=== PATIENT | male | born 1955 | race Caucasian/White ===

== ENCOUNTER 2016-06-05 13:14 | Emergency (ER) | payer OTHER ==
[2016-06-05] MEDS ORDERED: HYDROmorphONE/DILAUDID 1 MG/ML SYR IVP ONE (13:42)
[2016-06-05] MEDS ORDERED: NS 1,000 ML IV ONE (13:42)
--- NOTE | 2016-06-05 13:47 | EDPHY ---
H & P <Berto Vasques - Last Filed: 06/05/16 20:11> Stated Complaint: HTN, difficulty speaking Source: Patient Exam Limitations: No limitations - Personal History Current Tetanus Diphtheria and Acellular Pertussis (TDAP): Yes - Medical/Surgical History Hx Asthma: No Hx Chronic Respiratory Disease: No Hx Diabetes: No Hx Cardiac Disease: Yes Hx Renal Disease: Yes Hx Cirrhosis: No Hx Alcoholism: No Hx HIV/AIDS: No Hx Splenectomy or Spleen Trauma: No Other PMH: PSH: open heart for aortic anerysm w/ bicuspid valve replacement; renal aneurysm repair; hernia repair; fem/pop bypass x2; trasel tunnel nerve release w/ 5 sx after; compartment syndrom L calf w/ fasciotomy, vertibral dissection. 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 He has a history of bilateral fem-pop bypass, AAA with Dacron repair, mechanical aortic valve, cervical vertebral artery dissection and 2 weeks ago had a angioplasty done to his left femoral artery successfully. He comes to the emergency department today complaining of a headache for the last 2 days and elevated blood pressure around 180 systolic. He states that he is supposed to take amlodipine when his blood pressure elevates because they are concerned for aneurysmal damage. He has had angiograms of his brain before and no aneurysms found. He does take Coumadin. He has had a headache associated with his high blood pressure for the last 2 days and today became concerned when he was trying to leave a voicemail at 11: 30 a.m. and had trouble with word finding. He denies slurred speech or any focal weakness or numbness. He is ambulatory. He laid down on the couch and took a dose of amlodipine. His word-finding difficulties have now resolved. he denies chest pain, shortness of breath or palpitations. REVIEW OF SYSTEMS: Constitutional: denies: chills, fever, recent illness, recent injury EENTM: denies: blurred vision, double vision, nose congestion Respiratory: denies: cough, shortness of breath Cardiac: denies: chest pain, irregular heart rate, lightheadedness, palpitations Gastrointestinal/Abdominal: denies: abdominal pain, diarrhea, nausea, vomiting, blood streaked stools Genitourinary: denies: dysuria, frequency, hematuria, pain Musculoskeletal: denies: joint pain, muscle pain Skin: denies: lesions, rash, jaundice, bruising Neurological: See HPI Hematologic/Lymphatic: denies: blood clots, easy bleeding, easy bruising Immunologic/allergic: denies: HIV/AIDS, transplant EXAM: GENERAL: Well-appearing, well-nourished and in no acute distress. HEAD: Atraumatic, normocephalic. EYES: Pupils equal round and reactive to light, extraocular movements intact, sclera anicteric, conjunctiva are normal. ENT: TMs normal, nares patent, oropharynx clear without exudates. Moist mucous membranes. NECK: Normal range of motion, supple without lymphadenopathy or JVD. LUNGS: Breath sounds clear to auscultation bilaterally and equal. No wheezes rales or rhonchi. HEART: Regular rate and rhythm without murmurs, rubs or gallops. ABDOMEN: Soft, nontender, normoactive bowel sounds. No guarding, no rebound. No masses appreciated. BACK: No CVA tenderness, no spinal tenderness, step-offs or deformities EXTREMITIES: Normal range of motion, no pitting or edema. No clubbing or cyanosis. NEUROLOGICAL: Cranial nerves II through XII grossly intact. Normal speech, normal gait. 5/5 strength, normal movement in all extremities, normal sensation , normal naming of objects, no slurred speech, NIH stroke score 0. PSYCH: Normal mood, normal affect. SKIN: Warm, dry, normal turgor, no visible rashes or lesions. (Dylon Kenyon) Constitutional: Initial Vital Signs Temperature (C) 36.7 C 06/05/16 13:20 Heart Rate 75 06/05/16 13:20 Respiratory Rate 14 06/05/16 13:20 Blood Pressure 150/95 H 06/05/16 13:20 O2 Sat (%) 97 06/05/16 13:20 O2 Delivery Mode Room Air O2 (L/minute) 2 Allergies/Adverse Reactions: Iodinated Contrast Media - Oral and Allergy (Verified 06/05/16 13:24) Home Medications: Medication Instructions Recorded ASPIRIN 10/05/13 Coumadin 2.5MG (RX) 10/05/13 Crestor 10/05/13 Metoprolol Tartrate 10/05/13 DIAZEPAM 11/20/14 Myrbetriq 11/20/14 Amlodipine Besylate 06/05/16 Medical Decision Making <Berto Vasques - Last Filed: 06/05/16 20:11> <Dylon Kenyon - Last Filed: 06/06/16 07:15> - Diagnostics EKG Interpretation: An EKG obtained and was read and documented in trace view. Please see trace view for full reading and report. Sinus rhythm, no acute ischemic changes ( Dylon Kenyon) Imaging: Results: CT scan of the head was obtained. The results of the study are negative. The study was read by Dr. Wong. I viewed the images myself on the PACS system. Results: CT scan of the head and neck angiogram was obtained. The results of the study are negative except for a small left vertebral artery dissection proximally. The study was read by Dr. Esequiel Wong. I viewed the images myself on the PACS system. (Dylon Kenyon) ED Course/Re-evaluation: 4:30 p.m. the patient's symptoms have completely resolved. He no longer has a headache. Has blood pressure is 150/80. This is appropriate after being 180 systolic this morning. 4:45 p.m. I discussed the case with Dr. Sanchez from Neurology. He recommends a noncontrast MRI if there is no signs of ischemia the patient may be safely discharged home. 5:10 p.m. We discussed the CT results. The patient is reassured. I compared his results to [facility] when he had same vertebral artery dissection/flap in 2015 on an MRI of his neck. It is being treated with the anticoagulants only. Care transferred to Dr. Berto Vasques MRI pending. If this is negative I anticipate discharge. (Dylon Kenyon) Differential Diagnosis: Partial list of the Differential diagnosis considered include but were not limited to; headache, aneurysm, CVA, TIA, migraine, dissection and although unlikely based on the history and physical exam, I also considered infection, trauma. I discussed these differential diagnoses and the plan with the patient as well as the usual and expected course. The patient understands that the diagnosis is provisional and that in medicine we are not always correct and that further workup is often warranted. Usual and customary warnings were given. All of the patient's questions were answered. The patient was instructed to return to the emergency department should the symptoms at all worsen or return, otherwise to followup with the physician as we discussed. ( Dylon Kenyon) Other Provider: I assumed care of this patient from Dr. Kenyon at shift change pending brain MRI result. Per Dr. Dalal, the brain MRI shows significant background white matter microvascular ischemic gliosis, with a superimposed acute small focus of cortical ischemia involving the high right frontoparietal region. Plan to consult neurology 182: Consulted with Dr. Cabello, neurology. He recommends echocardiogram. ECHOCARDIOGRAPHY: Indication: chest pain,SOB Procedure: Limited transthoracic 2D echocardiogram. A limited transthoracic echocardiogram was performed by the echocardiogram technologists and interpreted by Dr. Phipps. Limited transthoracic echocardiogram: No vegetation or valve dysfunction noted. On re-evaluation at 8:15pm, the patient is comfortable and reports feeling fully back to normal. Dr. Cabello and I are both in full agreement that the patient is not a tPA candidate secondary to current supratherapeutic anticoagulation as well as recent surgery and history of verterbral dissection. Given negative echo, plan from Dr. Cabello was that patient can likely be discharged home to undergo further workup as an outpatient. I discussed this with the patient and offered him admission to the hospital, but he declines and would like to go home. We discussed strict return precautions. (Berto Vasques) - Data Points Laboratory Results: Laboratory Results 06/05/16 14:10 06/05/16 14:10 Medications Given: Discontinued Medications Diphenhydramine HCl (Benadryl Injection) 50 mg IVP EDNOW ONE Stop: 06/05/16 15:06 Last Admin: 06/05/16 15:31 Dose: 50 mg Hydromorphone HCl (Dilaudid) 0.5 mg IVP EDNOW ONE Stop: 06/05/16 13:43 Last Admin: 06/05/16 14:16 Dose: 0.5 mg Sodium Chloride (Ns) 1,000 mls @ 0 mls/hr IV ONCE ONE PRN Reason: Wide Open Stop: 06/05/16 13:43 Last Admin: 06/05/16 14:20 Dose: 1,000 mls Methylprednisolone Sodium Succinate (Solu-Medrol) 125 mg IVP EDNOW ONE Stop: 06/05/16 15:06 Last Admin: 06/05/16 15:31 Dose: 125 mg Departure <Berto Vasques - Last Filed: 06/05/16 20:11> <Dylon Kenyon - Last Filed: 06/06/16 07:15> - Departure Disposition: Home, Routine, Self-Care Clinical Impression: CVA (cerebral vascular accident) Condition: Fair Instructions: Self Care Measures After a Stroke (ED), Hypertension (ED), General Headache (ED) Additional Instructions: Follow-up with Dr. Cabello or other neurologist within one week for re- evaluation, as well as your tuck pointer helper and primary doctor. Return to the ED immediately for word-finding difficulties, numbness, weakness, or other concerns. Referrals: JACKIE HENRIQUEZ [Other] - As per Instructions Report Scribed for: Berto Vasques Report Scribed by: Arpita Carson Date of Report: 06/05/16 Time of Report: 18:27 <Berto Vasques - Last Filed: 06/05/16 20:11>
--- NOTE | 2016-06-05 14:10 | CPEKG ---
Heart Rate: 61 RR Interval: 984 P-R Interval: 180 QRSD Interval: 88 QT Interval: 424 QTC Interval: 427 P Snelling: 58 QRS Snelling: 58 T Wave Snelling: 68 EKG Severity - NORMAL ECG - EKG Impression: SINUS RHYTHM Electronically Signed By: Dylon Kenyon 05-Jun-2016 14:44:18
[2016-06-05 14:22] LABS: % IMMATURE GRANULYOCYTES 0.4 % (0.0-1.1); ABSOLUTE IMMATURE GRANULOCYTES 0.02 10^3/uL (0.00-0.10); ADD DIFF? NO; ADD MORPH? NO; ADD SCAN? NO; ATYPICAL LYMPHOCYTE FLAG 0 (0-99); FRAGMENT RBC FLAG 0 (0-99); HEMOGLOBIN 15.3 g/dL (13.7-17.5); LEFT SHIFT FLG 0 (0-99); LIPEMIA HEMOLYSIS FLAG 90 (0-99); MEAN CELL HEMOGLOBIN 31.1 pg (27.9-34.1); MEAN CELL HEMOGLOBIN CONCENTR. 34.8 g/dL (32.4-36.7); MEAN CELL VOLUME 89.4 fL (81.5-99.8); MEAN PLATELET VOLUME 9.7 fL (8.7-11.7); PLATELET CLUMPS FLAG 0 (0-99); PLATELET COUNT 169 10^3/uL (150-400); RED BLOOD CELL COUNT 4.92 10^6/uL (4.40-6.38); RED CELL DISTRIBUTION WIDTH 13.2 % (11.5-15.2)
[2016-06-05 14:32] LABS: INR 3.87 (0.83-1.16); PROTIME(PATIENT) 38.7 SEC (12.0-15.0)
[2016-06-05 14:35] LABS: ANION GAP 9 mEq/L (8-16); CALCIUM 9.9 mg/dL (8.5-10.4); CARBON DIOXIDE 25 mEq/l (22-31); CHLORIDE 105 mEq/L (97-110); CREATININE 0.9 mg/dL (0.7-1.3); GLOMERULAR FILTRATION RATE > 60; GLUCOSE 94 mg/dL (70-100); SODIUM 139 mEq/L (134-144)
[2016-06-05] MEDS ORDERED: methylPREDNISolone SOD SUCC 125 MG/2 ML VIAL IVP ONE (15:05)
[2016-06-05] MEDS ORDERED: IOPAMIDOL (ISOVUE-300) 100 ML BTL IV ONE (15:47)
[2016-06-05 20:32] VITALS: BP 150/95; PULSE 65; RESP 16; TEMP 97.3; O2SAT 95
--- NOTE | 2016-06-06 14:11 | ECHO ---
[id number] + + [address] : : [place] [address] : : [phone] + + Adult Echocardiographic Report + + :Name: KRISTOFER HILL KStudy Date: 06/05/2016 07:10 PM : : Hospital Admission Number: [id number] : :: 1955 Gender: Male Height: 69 in : :Age: 61 yrs Race: WH Weight: 166 lb : :Reason For Study: Eval LV Fx : : BSA: 1.9 meters2: :History: TIA, Htn Crisis, History of [place] Delfin Aortic Valve : + + MMode/2D Measurements \T\ Calculations IVSd: 1.0 cm LVIDd: 4.4 cm FS: 40.8 % Ao root diam: 2.6 cm LVPWd: 0.95 cm LVIDs: 2.6 cm EDV(Teich): 87.2 ml ESV(Teich): 24.6 ml EF(Teich): 71.8 % LVOT diam: 2.2 cm LVOT area: 3.8 cm2 Normal Measurement Values: + + :LVIDd (3.5-5.7cm) IVSd (0.6-1.1cm) LVPWd (0.6-1.1cm) Aortic Root (2.0-3.7cm)Left Atrium (1.5-4.0cm): :LV Vol(d) (76-115ml) LV Vol(s) (29-48ml) Ejec Fraction (50-65%)PV Daniel (0.6- 1.2m/s) TV Daniel (0.4-1.0m/s) : :MV E Daniel (0.8-1.0m/s)MV A Daniel (0.3-1.0m/s)LVOT Daniel (0.7-1.2m/s) Asc Ao Daniel ( 0.9-1.8m/s) : + + Doppler Measurements \T\ Calculations MV E max daniel: Ao V2 max: AI max daniel: LV V1 max: 47.4 cm/sec 156.0 cm/sec 489.5 cm/sec 69.2 cm/sec MV A max daniel: Ao max PG: AI max P.0 mmHg LV V1 max P.0 cm/sec 9.8 mmHg AI dec slope: 1.9 mmHg MV E/A: 0.63 Ao mean PG: LV V1 mean P.0 mmHg 242.0 cm/sec2 1.0 mmHg Ao V2 mean: AI P1/2t: 592.4 msec LV V1 mean: 102.8 cm/sec 49.1 cm/sec Ao V2 VTI: 32.6 cm LV V1 VTI: 17.4 cm ELOISA(I,D): 2.0 cm2 ELOISA(V,D): 1.7 cm2 MR max daniel: SV(LVOT): 66.1 ml PA V2 max: TR max daniel: 360.0 cm/sec 92.3 cm/sec 206.0 cm/sec MR max PG: PA max P.4 mmHg TR max P.8 mmHg 17.0 mmHg RAP systole: 5.0 mmHg RVSP(TR): 22.0 mmHg Left Ventricle The left ventricle is normal in size. There is normal left ventricular wall thickness. The left ventricular ejection fraction is normal. There is Doppler evidence for diastolic dysfunction. Ejection Fraction = 72%. The left ventricular wall motion is normal. Right Ventricle The right ventricle is normal in size and function. Atria The left atrial size is normal. Right atrial size is normal. Mitral Valve The mitral valve is normal. There is no mitral valve stenosis. There is mild mitral regurgitation. Tricuspid Valve Normal tricuspid valve. There is trace tricuspid regurgitation. Right ventricular systolic pressure is normal. Aortic Valve There is no aortic stenosis. The Ao V2 max is 1.5 m/sec with a Ao mean PG of 5 mmHg. Mild aortic regurgitation. There is a bi-leaflet (St. Delfin) aortic mechanical prosthesis. The gradient is normal for this prosthetic aortic valve. Pulmonic Valve The pulmonic valve is normal in structure and function. There is no pulmonic valvular regurgitation. Great Vessels The aortic root is normal size. Pericardium/Pleural There is no pericardial effusion. Conclusion A complete two-dimensional transthoracic echocardiogram was performed (2D, M-mode, Doppler and color flow Doppler). The left ventricular ejection fraction is normal. There is Doppler evidence for diastolic dysfunction. Ejection Fraction = 72%. The left ventricular wall motion is normal. There is an LV false tendon. The mitral valve is normal. There is mild mitral regurgitation. Normal tricuspid valve There is trace tricuspid regurgitation. Right ventricular systolic pressure is normal. There is a bi-leaflet (St. Delfin) aortic mechanical prosthesis. There is no aortic stenosis. Mild aortic regurgitation. The Ao V2 max is 1.5 m/sec with a Ao mean PG of 5 mmHg. The gradient is normal for this prosthetic aortic valve. There is no pericardial effusion. Final Reading Physician: Nevaeh Ellison signed on 06/06/2016 02:10 PM Ordering Physician: Berto Vasques Performed By: Ananth George, MARYCS
== END 2016-06-05 20:30 | disposition home or self-care (01) ==
DX: I63.9 Cerebral infarction, unspecified (principal); Z79.01 Long term (current) use of anticoagulants; Z79.82 Long term (current) use of aspirin
CPT/HCPCS: J1170; J1200; Q9967

== ENCOUNTER 2016-06-09 10:31 | Day surgery (SDC) | payer OTHER ==
--- NOTE | 2016-06-09 10:41 | EDPHY ---
H & P Stated Complaint: still dizzy after CVA on . sent by PCP Time Seen by Provider: 06/09/16 10:40 - Personal History Current Tetanus Diphtheria and Acellular Pertussis (TDAP): Yes - Medical/Surgical History Hx Asthma: No Hx Chronic Respiratory Disease: No Hx Diabetes: No Hx Cardiac Disease: Yes Hx Renal Disease: Yes Hx Cirrhosis: No Hx Alcoholism: No Hx HIV/AIDS: No Hx Splenectomy or Spleen Trauma: No Other PMH: PSH: open heart for aortic anerysm w/ bicuspid valve replacement; renal aneurysm repair; hernia repair; fem/pop bypass x2; trasel tunnel nerve release w/ 5 sx after; compartment syndrom L calf w/ fasciotomy, vertibral dissection. 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 - Social History Smoking Status: Never smoked Constitutional: Initial Vital Signs Temperature (C) 36.8 C 06/09/16 10:34 Heart Rate 49 L 06/09/16 10:34 Respiratory Rate 16 06/09/16 10:34 Blood Pressure 119/77 06/09/16 10:34 O2 Delivery Mode Room Air Allergies/Adverse Reactions: Iodinated Contrast Media - Oral and Allergy (Verified 06/05/16 13:24) Home Medications: Medication Instructions Recorded ASPIRIN 10/05/13 Coumadin 2.5MG (RX) 10/05/13 Crestor 10/05/13 Metoprolol Tartrate 10/05/13 DIAZEPAM 11/20/14 Amlodipine Besylate 06/05/16 Plavix 06/09/16 Medical Decision Making ED Course/Re-evaluation: CHIEF COMPLAINT: Dizziness HISTORY OF PRESENT ILLNESS: The patient is an anticoagulated 61 y/o male with a significant history of vascular disease and aneurysms arriving at the referral of his neurologist complaining of repeated episodes of dizziness over the last 2 days. He has a history that includes a mechanical aortic valve, cervical vertebral artery dissection, and angioplasty about 3 weeks ago to left femoral artery. He was seen here on 06/05/16, 4 days ago, with an "exploding headache" and word-finding difficulty that did not resolve with amlodipine. Brain MRI showed white matter disease with small focus of acute cortical ischemia. He was discharged home feeling normal until he developed dizziness over the weekend. He denies weakness, paresthesias, difficulty with speech, vision changes, or other symptoms. REVIEW OF SYSTEMS: A 10 point review of systems was performed and is negative with the exception of the elements mentioned in the history of present illness. PHYSICAL EXAM: HR, BP, O2 Sat, RR. Temp noted General Appearance: Alert, well hydrated, appropriate, and non-toxic appearing. Head: Atraumatic without scalp tenderness or obvious injury Eyes: Pupils equal, round, reactive to light and accommodation, EOMI, no trauma , no injection. Ears: Clear bilaterally, no perforation, normal landmarks Nose: Atraumatic, no rhinorrhea, clear. Throat: There is no erythema or exudates, no lesions, normal tonsils, mucus membranes moist. Neck: Supple, 2+ carotid upstroke, nontender, no lymphadenopathy. Respiratory: No retractions, no distress, no wheezes, and no accessory muscle use. Lungs are clear to auscultation bilaterally. Cardiovascular: Regular rate and rhythm, no murmurs, rubs, or gallops. Bilateral carotid, radial, dorsalis pedis, and posterior tibial pulses intact. Good capillary refill all extremities. Gastrointestinal: Abdomen is soft, nontender, non-distended, no masses, no rebound, no guarding, no peritoneal signs. Musculoskeletal: Normal active ROM of all extremities, atraumatic. Neurological: Alert, appropriate, and interactive. The patient has normal DTRs and non-focal cranial nerves, motor, sensory, and cerebellar exam. Skin: No rashes, good turgor, no nodules on palpation. Past medical history: cervical vertebral artery dissection, CVA - high right frontoparietal region, aneurysms Past surgical history: Mechanical aortic valve - Coumadin, left femoral artery angioplasty Family history: Noncontributory Social history: Employed Neurologist: Dr. Irby from [facility] [employer] Reviewed prior medical record including ED visit 06/05/16 for word-finding difficulty ultimately diagnosed as CVA. DIAGNOSTICS/PROCEDURES/CRITICAL CARE TIME: Study: MRI, MRA, and MRV of the: Brain with and without IV contrast Indication: Known aneurysms, new dizziness Results: MRI scan of the head was obtained. The results of the study are Impression: Interval resolution of small focus of diffusion restriction within the high right frontoparietal region. No new area of acute cortical ischemia is identified. Underlying white matter microvascular ischemic gliosis. Stable MR angiography and venography. The study was read by the radiologist, Dr. Dalal. I viewed the images myself on the PACS system. DIFFERENTIAL DIAGNOSIS: The differential diagnosis for the patient's dizziness included but was not limited to peripheral and central causes of vertigo, orthostatic causes including dehydration, cardiogenic and neurogenic causes, and blood loss. MEDICAL DECISION MAKING: This is a 61 y/o male presenting with a 2-day history of dizziness 4 days after a small cortical CVA. He denies other acute symptoms. He has significant history for vascular disease. His neuro exam is normal. Plan for brain MRI, CTA and CTV of the head. His neurologist, Dr. Irby, also requests a TERRY. IV established. Basic labs and PTPTT drawn. 1250: MRIs do not show acute infarct or dissection. 1300: Consulted with Dr. Haile, cardiology, regarding TERRY. He will perform TERRY here. 1304: Left message for Dr. Irby, patient's neurologist, to update her on patient condition. - Data Points Laboratory Results: Laboratory Results 06/09/16 11:00 06/09/16 11:00 06/09/16 06/09/16 06/09/16 11:00 11:00 11:00 WBC 5.00 10^3/uL 10^3/uL (3.80-9.50) RBC 4.79 10^6/uL 10^6/uL (4.40-6.38) Hgb 15.0 g/dL g/dL (13.7-17.5) Hct 43.0 % % (40.0-51.0) MCV 89.8 fL fL (81.5-99.8) MCH 31.3 pg pg (27.9-34.1) MCHC 34.9 g/dL g/dL (32.4-36.7) RDW 13.2 % % (11.5-15.2) Plt Count 157 10^3/uL 10^3/uL (150-400) MPV 9.8 fL fL (8.7-11.7) Neut % (Auto) 59.4 % % (39.3-74.2) Lymph % (Auto) 26.0 % % (15.0-45.0) Henderson % (Auto) 10.2 % % (4.5-13.0) Eos % (Auto) 3.2 % % (0.6-7.6) Baso % (Auto) 0.8 % % (0.3-1.7) Nucleat RBC Rel Count 0.0 % % (0.0-0.2) Absolute Neuts (auto) 2.97 10^3/uL 10^3/uL (1.70-6.50) Absolute Lymphs (auto) 1.30 10^3/uL 10^3/uL (1.00-3.00) Absolute Monos (auto) 0.51 10^3/uL 10^3/uL (0.30-0.80) Absolute Eos (auto) 0.16 10^3/uL 10^3/uL (0.03-0.40) Absolute Basos (auto) 0.04 10^3/uL 10^3/uL (0.02-0.10) Absolute Nucleated RBC 0.00 10^3/uL 10^3/uL (0-0.01) Immature Gran % 0.4 % % (0.0-1.1) Immature Gran # 0.02 10^3/uL 10^3/uL (0.00-0.10) PT 31.2 SEC H SEC (12.0-15.0) INR 2.96 H (0.83-1.16) APTT 39.9 SEC H SEC (23.0-38.0) Sodium 141 mEq/L mEq/L (134-144) Potassium 4.2 mEq/L mEq/L (3.5-5.2) Chloride 105 mEq/L mEq/L (97-110) Carbon Dioxide 26 mEq/l mEq/l (22-31) Anion Gap 10 mEq/L mEq/L (8-16) BUN 17 mg/dL mg/dL (7-23) Creatinine 0.9 mg/dL mg/dL (0.7-1.3) Estimated GFR > 60 Glucose 79 mg/dL mg/dL (70-100) Calcium 9.9 mg/dL mg/dL (8.5-10.4) Departure - Departure Disposition: [facility] Inpatient Acute Clinical Impression: Dizziness Condition: Fair Referrals: Rosana Irby DO [Primary Care Provider] - As per Instructions Report Scribed for: Jay Gandhi Report Scribed by: Arpita Carson Date of Report: 06/09/16 Time of Report: 12:07
[2016-06-09 11:15] LABS: % IMMATURE GRANULYOCYTES 0.4 % (0.0-1.1); ABSOLUTE IMMATURE GRANULOCYTES 0.02 10^3/uL (0.00-0.10); ADD DIFF? NO; ADD MORPH? NO; ADD SCAN? NO; ATYPICAL LYMPHOCYTE FLAG 0 (0-99); FRAGMENT RBC FLAG 0 (0-99); LEFT SHIFT FLG 0 (0-99); LIPEMIA HEMOLYSIS FLAG 90 (0-99); MEAN CELL HEMOGLOBIN 31.3 pg (27.9-34.1); MEAN CELL HEMOGLOBIN CONCENTR. 34.9 g/dL (32.4-36.7); MEAN CELL VOLUME 89.8 fL (81.5-99.8); MEAN PLATELET VOLUME 9.8 fL (8.7-11.7); PLATELET CLUMPS FLAG 0 (0-99); PLATELET COUNT 157 10^3/uL (150-400); RED BLOOD CELL COUNT 4.79 10^6/uL (4.40-6.38); RED CELL DISTRIBUTION WIDTH 13.2 % (11.5-15.2)
[2016-06-09 11:27] LABS: INR 2.96 (0.83-1.16); PROTIME(PATIENT) 31.2 SEC (12.0-15.0)
[2016-06-09] MEDS ORDERED: GADOBUTROL 10 ML VIAL IVP ONE (11:27)
[2016-06-09 11:28] LABS: APTT 39.9 SEC (23.0-38.0)
[2016-06-09 11:34] LABS: ANION GAP 10 mEq/L (8-16); CALCIUM 9.9 mg/dL (8.5-10.4); CARBON DIOXIDE 26 mEq/l (22-31); CHLORIDE 105 mEq/L (97-110); CREATININE 0.9 mg/dL (0.7-1.3); GLOMERULAR FILTRATION RATE > 60; GLUCOSE 79 mg/dL (70-100); POTASSIUM 4.2 mEq/L (3.5-5.2); SODIUM 141 mEq/L (134-144)
[2016-06-09] MEDS ORDERED: BENZOCAINE UNIT DOSE SPRAY HURRICAINE MM ONE (13:17)
[2016-06-09] MEDS ORDERED: NS 1,000 ML IV ONE (13:17)
[2016-06-09] MEDS ORDERED: MIDAZOLAM 2 MG/2 ML VIAL IVP ONE (13:17)
[2016-06-09] MEDS ORDERED: fentaNYL 100 MCG/2 ML INJ IVP ONE (13:17)
[2016-06-09 13:30] VITALS: BP 160/65; PULSE 52; RESP 18; TEMP 98.4; O2SAT 96
[2016-06-09] MEDS ORDERED: MIDAZOLAM 2 MG/2 ML VIAL ONE ×2 (13:41→13:42)
[2016-06-09] MEDS ORDERED: fentaNYL 100 MCG/2 ML INJ ONE (13:42)
--- NOTE | 2016-06-10 12:38 | ECHO ---
[id number] + + [address] : : [facility] [address] : : [phone] + + Transesophageal Echocardiographic Report + -----+ :Name: KRISTOFER HILL KStudy Date: 06/09/2016 01:31 PM : : Hospital Admission Number: [id number] Location : [facility]: :: 1955 Gender: Male : :Age: 61 yrs Race: WH : :Reason For Study: Eval Valves : :History: TIA, [facility] Delfin : + -----+ Left Ventricle The left ventricular ejection fraction is normal. Atria Injection of contrast documented no interatrial shunt. The interatrial septum is intact with no evidence for an atrial septal defect. The left atrium is moderately dilated. No left atrial mass or thrombus visualized. No thrombus is detected in the left atrial appendage. The right atrium is moderately dilated. Mitral Valve The mitral valve is normal. There is no vegetation seen on the mitral valve. There is mild mitral regurgitation. Tricuspid Valve Normal tricuspid valve. Aortic Valve There is no aortic valvular vegetation. There is no aortic insufficiency. There is a bi-leaflet (St. Delfin) aortic mechanical prosthesis. The prosthetic aortic valve is well-seated. Bioprosthetic leaflets are thin and move normally. Conclusion A 2D transesophageal echocardiogram with color flow Doppler was performed. No cardiac source of emboli noted. The left ventricular ejection fraction is normal. There is mild mitral regurgitation. Injection of contrast documented no interatrial shunt. The interatrial septum is intact with no evidence for an atrial septal defect. There is a bi-leaflet (St. Delfin) aortic mechanical prosthesis. The prosthetic aortic valve is well-seated. Bioprosthetic leaflets are thin and move normally. The left atrium is moderately dilated. No left atrial mass or thrombus visualized. No thrombus is detected in the left atrial appendage. Final Reading Physician: Nevaeh Lou signed on 06/10/2016 12:37 PM Ordering Physician: Jay Gandhi Performed By: Romero Haile MD
== END 2016-06-09 17:25 | disposition home or self-care (01) ==
LOC: FCATH 13:29
PROVIDERS: ATTEND Internal Medicine Interventional Cardiology
PROC: B246ZZ4 Ultrasonography of Right and Left Heart, Transesophageal (ICD-10-PCS; principal; 2016-06-09)
DX: R42 Dizziness and giddiness (principal); Z95.2 Presence of prosthetic heart valve; Z79.01 Long term (current) use of anticoagulants; Z86.73 Personal history of transient ischemic attack (TIA), and cerebral infarction without residual deficits
CPT/HCPCS: A9585; J2250; J3010